=== PATIENT | male | born 1965 | race Hispanic/Latino ===

== ENCOUNTER 2017-04-29 10:48 | Emergency (ER) | payer MEDICARE, OTHER ==
--- OUTSIDE RECORDS SUMMARY | 2017-04-29 10:50 | XMS REPORT | Clinical Summary ---
Author Author [facility] Address Unknown Phone Unavailable Care Team Providers Care Entry Level Software Engineer Name Role Phone PCP Unavailable Allergies No Known Allergies Current Medications Prescription Sig. Disp. Refills Start End Date Status Date aspirin 81 MG EC Take 81 mg by mouth Active tabletIndications: ESRD daily. (end stage renal disease) ([facility]) pregabalin (LYRICA) 150 Take 75 mg by mouth 2 Active MG capsuleIndications: (two) times daily . ESRD (end stage renal disease) ([facility]) insulin glargine (LANTUS) Inject 50 Units Active 100 unit/mL subcutaneously nightly injectionIndications: Use as directed. ESRD (end stage renal disease) ([facility]) insulin glulisine (APIDRA Inject 30 Units Active SOLOSTAR) 100 unit/mL subcutaneously 3 (three) InPnIndications: ESRD times daily before meals (end stage renal disease) . ([facility]) sevelamer (RENAGEL) 800 Take 1,600 mg by mouth 3 Active MG tabletIndications: (three) times daily with ESRD (end stage renal meals. disease) ([facility]) atorvastatin (LIPITOR) 40 Take 80 mg by mouth Active MG tabletIndications: daily. ESRD (end stage renal disease) ([facility]) omega-3 fatty acids (FISH Take 1 capsule by mouth 2 Active OIL) 500 mg (two) times daily . CapIndications: ESRD (end stage renal disease) ([facility]) cholecalciferol, vitamin Take 10,000 Units by Active D3, 5,000 unit mouth once a week . TabIndications: ESRD (end stage renal disease) ([facility]) clopidogrel (PLAVIX) 75 Take 75 mg by mouth Active mg tabletIndications: daily. ESRD (end stage renal disease) ([facility]) albuterol HFA (VENTOLIN Inhale 1 puff by mouth Active HFA) 90 mcg/actuation via inhaler every 6 (six) inhaler hours as needed for Wheezing. allopurinol (ZYLOPRIM) Take 100 mg by mouth Active 100 MG tablet daily. cloNIDine HCl (CATAPRES) Take 0.2 mg by mouth as Active 0.3 MG tablet needed . carvedilol (COREG) 12.5 Take 12.5 mg by mouth 2 Active MG tablet (two) times daily. liraglutide 0.6 mg/0.1 mL Inject 1.8 mg Active (18 mg/3 mL) PnIj subcutaneously nightly. senna (SENOKOT) 8.6 mg Take 1 tablet by mouth as 10/23/19 Discontin tabletIndications: ESRD needed for Constipation. 17 ued (end stage renal disease) ([facility]) lactulose (CHRONULAC) 10 Take 10 g by mouth daily 10/23/19 Discontin gram/15 mL (15 mL) as needed 75 mg. 17 ued solutionIndications: ESRD (end stage renal disease) ([facility]) dexlansoprazole 60 mg Take 30 mg by mouth daily 01/19/20 Discontin capsule . 17 ued liraglutide 0.6 mg/0.1 mL Inject 0.3 mLs 01/19/20 Discontin (18 mg/3 mL) PnIj subcutaneously nightly . 17 ued Active Problems Patient Care Coordination Note Neurology Association- Rebeka Wan [phone] [facility] [phone] Urology- Lalo Watts [phone] Infectious Disease- Irlanda Gorman [phone] [facility] Gastroenterology Flash Billingsley MD [phone] Problem Noted Date Patient awaiting renal transplant 01/18/2017 Diabetic nephropathy associated with type 2 diabetes mellitus ([facility]) 2016 PVD (peripheral vascular disease) ([facility]) 01/18/2017 S/P coronary artery stent placement 01/18/2017 Essential hypertension with goal blood pressure less than 130/85 08/22/2015 ESRD (end stage renal disease) ([facility]) 08/22/2015 Preop examination 08/22/2015 CAD (coronary artery disease) 07/04/2015 CKD (chronic kidney disease) stage 5, GFR less than 15 ml/min ([facility]) 2014 Pre-transplant evaluation for chronic kidney disease 01/28/2015 Last Assessment & Plan: Risks/benefits/alternatives of transplant discussed indepth. All questions answered. From a surgical perspective there are no contraindications to transplant. DM type 2 causing CKD stage 5 ([facility]) 01/28/2015 Last Assessment & Plan: Continue tight blood glucose control. Essential hypertension 01/28/2015 Coronary artery disease involving [place] coronary artery of [place] heart without angina pectoris Last Assessment & Plan: Stented, no symptoms. Continue ASA/Plavix pre and postopr Obesity (BMI 30-39.9) 01/28/2015 Last Assessment & Plan: BMI acceptable for transplant, however encouraged ongoing weight loss. YOKASTA on CPAP 01/28/2015 Diabetic polyneuropathy associated with type 2 diabetes mellitus ([facility]) 01/28 Hyperlipidemia 01/28/2015 Encounters Date Type Specialty Care Team Description 04/21/2017 Telephone Transplant Jenise Schultz RN Waitlist Maintenance 03/14/2017 Orders Only Transplant Jenise Schultz RN Pre-transplant evaluation for chronic kidney disease (Primary Dx);Patient awaiting renal transplant 01/18/2017 Evaluation Transplant Vickie Anaya Pre-transplant evaluation MD Kerwin for chronic kidney disease (Primary Dx);ESRD (end stage renal disease) ([facility]);Patient awaiting renal transplant;Diabetic nephropathy associated with type 2 diabetes mellitus ([facility]);Essential hypertension with goal blood pressure less than 130/85;Coronary artery disease involving [place] coronary artery of [place] heart without angina pectoris;S/P coronary artery stent placement;YOKASTA on CPAP 01/18/2017 Orders Only Transplant Alcon Richard MD 01/17/2017 Telephone Transplant Maci Vang Appointment (Stress + 2D Echo + Updates) 12/21/2016 Hospital Gastroenterology Brittany Huitron MD Encounter 12/21/2016 Orders Only General Internal Medicine 12/21/2016 Procedure Pass Gastroenterology 12/21/2016 Surgery Gastroenterology Brittany Huitron MD COLONOSCOPY, POLYPECTOMY 12/20/2016 [facility] 12[facility]17[facility]2016 Hospital Pre-Admission Testing Encounter 12/10/2016 Documentation Transplant Taj Maci 12/06/2016 Documentation Transplant Taj Maci 12/06/2016 Telephone Transplant Sarah Vanginda Appointment (Updates) 12/03/2016 Telephone Transplant Jenise Schultz RN Waitlist Maintenance 10/26/2016 Hospital Gastroenterology Brittany Huitron MD Encounter 10/26/2016 Procedure Pass Gastroenterology 10/26/2016 Surgery Gastroenterology Brittany Huitron MD COLONOSCOPY 10/25/2016 Anesthesia Gastroenterology Woody De León Event MD 09/01/2016 Documentation Transplant Taj Maci 08/24/2016 Telephone Transplant Camargo, Meriam Appointment 08/23/2016 Telephone Transplant Sarah Vanginda Colonoscopy Scheduled 08/20/2016 Telephone Transplant Maci Vang Appointment ( Colonoscopy) 07/23/2016 Lab Requisition Lab Vickie Anaya MD 07/23/2016 Telephone Transplant Camargo, Meriam Appointment 07/23/2016 Documentation Transplant Camargo, Meriam 07/13/2016 Documentation Transplant Camargo, Meriam 05/12/2016 Abstract Transplant Jenise Schultz RN after 04/28/2016 Family History Medical History Relation Name Comments Diabetes Brother Diabetes Father Hypertension Father Leukemia Father Diabetes Mother Hypertension Mother Heart failure Sister Relation Name Status Comments Brother Alive Brother Father of leukemia (Age 76) Mother of CHF (Age 69) Sister Alive Sister Alive Sister Social History Tobacco Use Types Packs/Day Years Used Date Never Smoker Smokeless Tobacco: Never Used Alcohol Use Drinks/Week oz/Week Comments Yes Social Sex Assigned at Date Recorded Not on file Last Filed Vital Signs Vital Sign Reading Time Taken Blood Pressure 152/92 01/18/2017 12:19 PM DIAGNOSTIC SALES SPECIALIST Pulse 98 01/18/2017 12:19 PM DIAGNO[employer]IC SALES SPECIALIST Temperature 36.9 C (98.4 F) 01/18/2017 12:19 PM DIAGNOSTIC SALES SPECIALIST Respiratory Rate 16 01/18/2017 12:19 PM DIAGNOSTIC SALES SPECIALIST Oxygen Saturation 99% 01/18/2017 12:19 PM DIAGNOSTIC SALES SPECIALIST Inhaled Oxygen - - Concentration Weight 100.4 kg (221 lb 6.4 oz) 01/18/2017 12:19 PM DIAGNOSTIC SALES SPECIALIST Height 182.9 cm (6') 01/18/2017 12:19 PM DIAGNOSTIC SALES SPECIALIST Body Mass Index 30.03 01/18/2017 12:19 PM DIAGNOSTIC SALES SPECIALIST Plan of Treatment Health Maintenance Due Date Last Done Comments INFLUENZA VACCINE 12/05/2016 Implants Implanted Type Area Sueding And Buffing Machine Operator Device Expiration Model / Identifier Date Serial / Lot Laith Le [place] 09/12/2015 [id number] Implanted: Qty: 1 on 07/04/2015 [employer] 6250 / / [id number] Laith WILEY 09/03/2017 [id number] Implanted: Qty: 1 on 07/04/2015 [employer] 2250 / / [id number] Procedures Procedure Name Priority Date/Time Associated Diagnosis Comments COLONOSCOPY,POLYPECTOMY 12/21/2016 Screening for colon 8:00 AM CDT cancer COLONOSCOPY 10/26/2016 Colon cancer screening 11:00 AM CDT Special Needs (PATIENT IS ON DIALYSIS) after 04/28/2016 Results * Flow PRA Class II (04/05/2017 11:31 AM) Component Value Ref Range Flow Class II Percent 0 Positive Flow Class Report Comments Specimen Performing Laboratory Blood [facility] ONE [facility] [place], [place]: [id number] [place] [address] * Flow PRA Class I (04/05/2017 11:31 AM) Component Value Ref Range Flow Class I Percent 0 Positive Flow Class Report Comments Specimen Performing Laboratory Blood [facility] ONE [facility] [place], [place]: [id number] [place] [address] * POC-Glucose meter (12/21/2016 9:09 AM) Only the most recent of 3 results within the time period is included. Component Value Ref Range POC-Glucose Meter 147 (H)Comment: TESTED AT [address] 70 - 110 mg /dL [place] [id number] Specimen Performing Laboratory Blood [address] [address] * REPORT OF PROCEDURE - ENDOSCOPY URL (12/21/2016 8:32 AM) Only the most recent of 2 results within the time period is included. * Tissue Exam (12/21/2016 8:19 AM) Component Value Ref Range Case Report Surgical Pathology Report Case: [id number] Authorizing Provider: Brittany Huitron MD Collected: 12/21/2016 0819 Ordering Location: [facility] Endoscopy Received: 12/21/2016 1319 Services Pathologist: Srinivas Eng MD Specimens: A) - Polyp, Colon - Right/Ascending, cold forceps B) - Polyp, Colon - Cecum, cold forceps C) - Polyp, Colon - Transverse, polyps x 2--cold forceps DIAGNOSIS A. RIGHT/ASCENDING COLON POLYP, BIOPSY - TUBULAR ADENOMA - NO HIGH-GRADE DYSPLASIA AND NO MALIGNANCY IDENTIFIED B. CECUM POLYP, BIOPSY - TUBULAR ADENOMA - NO HIGH-GRADE DYSPLASIA AND NO MALIGNANCY IDENTIFIED C. TRANSVERSE COLON POLYP, BIOPSY - COLONIC MUCOSA, BENIGN LYMPHOID FOLLICLE Signing Pathologist Direct Phone Line: [phone] CPT Code(s) 20240 x 3 CLINICAL HISTORY Screening for colon cancer SPECIMEN SOURCE A. Right/ascending colon polyp. B. Cecum polyp. C. Transverse colon polyp GROSS DESCRIPTION Specimen A: Received in formalin labeled "polyp, colon right/ascending" are two fragments each measuring 0.3 cm in greatest dimension. Specimen is entirely submitted in A1. Specimen B: Received in formalin labeled "polyp, colon cecum" is a single fragment measuring 0.3 cm in greatest dimension. Specimen is entirely submitted in B1. Specimen C: Received in formalin labeled "polyp, colon transverse" are two fragments measuring 0.2 and 0.3 cm in greatest dimension. Specimen is entirely submitted in C1. DB/ew MICROSCOPIC DESCRIPTION A. Sections reveal pieces of colonic mucosa with a tubular adenoma with glands showing proliferation of adenomatous epithelium with nuclear stratification. The lamina propria has mildly increased acute and chronic inflammation. High-grade dysplasia and malignancy are not seen. B. Sections reveal a tubular adenoma with glands showing proliferation of adenomatous epithelium with nuclear stratification. The lamina propria has mildly increased acute and chronic inflammation. High-grade dysplasia and malignancy are not seen. C. Sections reveal pieces of benign colonic mucosa with a benign lymphoid follicle. The lamina propria has minimal chronic inflammation. Normal crypt architecture is seen with no evidence of granulomatous inflammation or acute colitis. Features of collagenous colitis, inflammatory bowel disease and lymphocytic colitis are not seen. Adenomatous change, dysplasia and malignancy are not seen. Specimen Performing Laboratory Tissue - Polyp, Colon - [facility] Right/Ascending; Tissue - [facility] Polyp, Colon - Cecum; [place] [address] Tissue - Polyp, Colon - Transverse * ECG 12 lead (12/21/2016 7:14 AM) Specimen Performing Laboratory GE MUSE Narrative Ventricular Rate 68 BPM Atrial Rate 68 BPM P-R Interval 146 ms QRS Duration 82 ms Q-T Interval 420 ms QTC Calculation(Bazett) 446 ms P Wil[place] 30 degrees R Wil[place] 29 degrees T [place] 29 degrees Normal sinus rhythm Poor R wave progression, cannot rule out old anterolateral DE Abnormal ECG When compared with ECG of 19-AUG-2015 09:32, poor R wave progression is now present Criteria for Inferior infarct are no longer Present Confirmed by MD LEYVA CHUNG-SHIN ([id number]) on 12/27/2016 12:29:12 PM Procedure Note Interface, External Ris In - 12/27/2016 12:29 PM CDT Ventricular Rate 68 BPM Atrial Rate 68 BPM P-R Interval 146 ms QRS Duration 82 ms Q-T Interval 420 ms QTC Calculation(Bazett) 446 ms P [place] 30 degrees R [place] 29 degrees T [place] 29 degrees Normal sinus rhythm Poor R wave progression, cannot rule out old anterolateral DE Abnormal ECG When compared with ECG of 19-AUG-2015 09:32, poor R wave progression is now present Criteria for Inferior infarct are no longer Present Confirmed by MD LEYVA CHUNG-SHIN ([id number]) on 12/27/2016 12:29:12 PM * POC-Hemoglobin meter (12/21/2016 7:01 AM) Component Value Ref Range POC-Hemoglobin Meter 11.4 (L)Comment: TESTED AT [address] 13.0 - 16.8 g/dL [place] [id number] Specimen Performing [place] [address] * POC-Potassium (12/21/2016 6:57 AM) Only the most recent of 2 results within the time period is included. Component Value Ref Range POC-Potassium 4.3Comment: TESTED AT [address] 3.6 - 5.5 meq/L [id number] Specimen Performing [place] [address] * Venous doppler legs bilateral (12/21/2016) * Arterial doppler legs bilateral (12/16/2016) * Ankle brachial index (12/16/2016) * Flow PRA Class I and II (07/19/2016 12:00 PM) Component Value Ref Range Date of Serum [id number] Serum# [id number] Flow PRA Class I and II See Scanned Report Specimen Performing Laboratory Blood [facility] IMMUNE EVALUATION LAB [facility] One [facility] [place], [place]:[address] [address] after 04/28/2016
--- OUTSIDE RECORDS SUMMARY | 2017-04-29 10:51 | XMS REPORT ---
Author Author [facility] Address Unknown Phone Unavailable Care Team Providers Care Manager Case Management Name Role Phone BRITTANY EID Unavailable Unavailable Problems This patient has no known problems. Allergies, Adverse Reactions, Alerts This patient has no known allergies or adverse reactions. Medications This patient has no known medications. Results Test Description Test Time Test Comments Text Results Atomic Results Result Comments TISSUE EXAM 2016-12-22 17:07:00 Surgical Pathology Report Case: [id number] Authorizing Provider: Brittany Eid MD Collected: 12/21/2016 0819 Ordering Location: [facility] Endoscopy Received: 2016 1319 Services Pathologist: Srinivas Eng MD Specimens: A) - Polyp, Colon - Right/Ascending, cold forceps B) - Polyp, Colon - Cecum, cold forceps C) - Polyp, Colon - Transverse, polyps x 2-- cold forceps A. RIGHT/ASCENDING COLON POLYP, BIOPSY - TUBULAR ADENOMA- NO HIGH-GRADE DYSPLASIA AND NO MALIGNANCY IDENTIFIEDB. CECUM POLYP, BIOPSY- TUBULAR ADENOMA- NO HIGH-GRADE DYSPLASIA AND NO MALIGNANCY IDENTIFIEDC. TRANSVERSE COLON POLYP, BIOPSY- COLONIC MUCOSA, BENIGN LYMPHOID FOLLICLE Signing Pathologist Direct Phone Line: [phone] signed by Srinivas Eng MD on 12/22/2016 at 5:07 [id number] x 3Screening for colon cancerA. Right/ascending colon polyp. B. Cecum polyp. C. Transverse colon polyp Specimen A: Received in formalin labeled "polyp, colon right/ascending" are two fragments each measuring 0.3 cm in greatest dimension. Specimen is entirely submitted in A1. Specimen B: Received in formalin labeled "polyp, colon cecum" is a single fragment measuring 0.3 cm in greatest dimension. Specimen is entirely submitted in B1.Specimen C: Received in formalin labeled "polyp, colon transverse" are two fragments measuring 0.2 and 0.3 cm in greatest dimension. Specimen is entirely submitted in C1. DB/ew A. Sections reveal pieces of colonic mucosa [...] change, dysplasia and malignancy are not seen. POCT-GLUCOSE METER 2016-12-21 09:11:00 POC-GLUCOSE METER (BEAKER) (test wxek=5547) 147 mg/dL 70-110 TESTED AT [place] [id number] 07:07:00* Test Item Value Reference Range Comments POC-POTASSIUM (BEAKER) (test ytxr=4358) 4.3 meq/L 3.6-5.5 TESTED AT [place] [id number] POCT-HEMOGLOBIN [id number] 07:03:00* Test Item Value Reference Range Comments POC-HEMOGLOBIN METER (BEAKER) (test post=8102) 11.4 g/dL 13.0-16.8 TESTED AT [place] [id number] POCT-GLUCOSE [id number] 07:03:00* Test Item Value Reference Range Comments POC-GLUCOSE METER (BEAKER) (test zjjw=5979) 169 mg/dL 70-110 [address]ED AT [address] [address] [id number] 11:28:00* Test Item Value Reference Range Comments POC-POTASSIUM (BEAKER) (test uogm=7029) 3.9 meq/L 3.6-5.[address] [address] POCT-GLUCOSE [id number] 11:18:00* Test Item Value Reference Range Comments POC-GLUCOSE METER (BEAKER) (test ivfo=8541) 108 mg/dL 70-110 TESTED AT [place] [id number] FLOW PRA CLASS I AND [id number] 13:22:00* Test Item Value Reference Range Comments DATE OF SERUM (JAYLIN) (test tcqq=7322) [id number] SERUM # (JAYLIN) (test acyi=8457) [id number] FLOW PRA CLASS I AND II (test yjmi=2967) See Scanned Report
== END 2017-04-29 11:30 | disposition short-term general hospital (02) ==
LOC: FSED 10:48
DX: S69.90XA Unspecified injury of unspecified wrist, hand and finger(s), initial encounter (principal)

== ENCOUNTER → 2019-09-20 | Day surgery (SDC) | payer MEDICARE, OTHER ==
[2019-09-14 11:40] LABS: BASOPHILS % 0.5 % (0.0-1.0); EOSINOPHILS # (AUTO) 0.1 (0.0-0.4); EOSINOPHILS % 2.5 % (0.0-6.0); HEMATOCRIT 39.7 % (38.2-49.6); HEMOGLOBIN 12.5 g/dL (14.0-18.0); LYMPHOCYTES # (AUTO) 0.9 (1.0-3.2); LYMPHOCYTES % 20.1 % (18.0-39.1); MEAN CORPUSCULAR HEMOGLOBIN 28.8 pg (28-32); MEAN CORPUSCULAR HGB CONC 31.5 g/dL (31-35); MEAN CORPUSCULAR VOLUME 91.5 fL (81-99); MONOCYTES # (AUTO) 0.4 (0.2-0.8); NEUTROPHILS % 67.7 % (38.7-80.0); PLATELET COUNT 140 x10e3/uL (140-360); RED BLOOD COUNT 4.34 x10e6/uL (4.3-5.7); RED CELL DISTRIBUTION WIDTH 13.9 % (11.7-14.4)
[2019-09-14 11:57] LABS: ANION GAP 16.1 mmol/L (8-16); CALCIUM 9.5 mg/dL (8.4-10.2); CREATININE, SERUM 7.51 mg/dL (0.72-1.25); POTASSIUM 5.1 mmol/L (3.5-5.1)
--- NOTE | 2019-09-14 12:12 | Diagnostic Imaging Report ---
X-ray chest PA and lateral Comparison: None History: Preop Findings: Status post median sternotomy and CABG. A few coronary artery stents are also visualized. Central airways unremarkable. Heart size normal. No pleural effusion. No pneumothorax. No focal lung disease. Right shoulder orthopedic hardware suggestive of prior surgery. Surgical magaly in the upper abdomen. Impression: No acute cardiopulmonary disease. Signed by: Danilo Bernard MD on 09/14/2019 12:08 PM
[~2019-09-20] MED LIST: ASPIRIN81 MG PO; ATORVASTATIN CA20 MG PO; BUPIVACAINE HCL 0.5% INJ 30 ML VIAL INJ ONE; CARVEDILOL12.5 MG PO; CEFAZOLIN SOD 1 GM/NS 50ML 100 ML IV ONE; EPINEPHRINE 1 MG/ML 30ML VIAL ONE; EPINEPHRINE HCL 1:1000 1ML 1 MG/ML AMP ONE; ETOMIDATE 2 MG/ML 10 ML INJ IV ONE; HUMALOG100 UNIT/1 SC; LANTUS 3ML100 UNITS/ SC; LIDOCAINE HCL 2% LOCAL INJ 5 ML SDV VIAL INJ ONE; LINZESS72 MCG PO; LYRICA150 MG PO; OMEGA 3 FISH O1 EACH PO; ONDANSETRON HCL INJ 2MG/ML 2ML 2 MG/ML VIAL ONE; PROPOFOL IV EMULSION 10 MG/ML 20 ML VIAL ONE; ROCURONIUM BROMIDE 10 MG/ML 5ML VIAL IV ONE; SENSIPAR30 MG PO; SEVOFLURANE INHAL SOLN 250 ML PEN BTL ONE; SODIUM CHLORIDE 0.9% 500ML 500 ML ONE; SUCCINYLCHOLINE CHLORIDE 20 MG/ML 10ML VIAL ONE; VICTOZA 2-0.6 MG/0.1 SC; VITAMIN D310 MCG PO
[2019-09-20 12:04] LABS: INR 0.85; PROTHROMBIN TIME 12.1 seconds (11.9-14.5)
[2019-09-20 12:05] LABS: PARTIAL THROMBOPLASTIN TIME 28.7 seconds (23.8-35.5)
[2019-09-20 15:05] VITALS: BP 135/65
--- NOTE | 2019-09-20 20:38 | Operative Report ---
DATE OF PROCEDURE: 09/20/2019 SURGEON: TANYA SUERO MD LOCATION: Place of surgery is [facility]. HISTORY: Mr. Erazo is a 54-year-old male whom I initially seeing in [facility] for recurrent pain of his right shoulder. Clinically, I was concerned about the recurrent right-sided rotator cuff tear. The patient underwent a rotator cuff repair of the same right shoulder several years ago. The patient had elected to forgo any further conservative treatment and proceed along with a diagnostic arthroscopy of the right shoulder. Risks and benefits of surgery have been outlined to him in the orthopedic clinic consisting of but not limited to the following: Infection, blood loss, nerve, vessel or tendon injury, DVT, ongoing pain, or stiffness. I also made the patient aware of my concerns regarding the chronicity of his tear as well as the tear and underlying retraction. He is aware that there is a possibility that the rotator cuff tendon itself may not be repairable and that if he has any other underlying functional loss of motion and pain he may referred to further additional surgery with worst case now being reverse shoulder arthroplasty. The patient was seen and identified in the preoperative holding area. The right shoulder was marked by myself and the patient agreed. The patient was then brought back to the operative suite, placed supine on the operative table. Time-out was taken for Mr. Rios Erazo for a diagnostic arthroscopy of his right shoulder. All were in agreement including nursing staff, anesthesia and myself. The patient had been given a regional block anesthesia in the preoperative holding area. The patient was then given successful general intubation anesthetic and then placed placed in the beach chair position. The right shoulder was then fully prepped and draped. The shoulder was inflated with about 30 mL of sterile saline and a 15-Bard Nelson blade was used to make the posterior portal. Blunt trocar was inserted. The patient was noted to have somewhat of a significant underlying villonodular synovitis throughout the anterior compartment. He also had the degenerative type 3 labral tear noted. A anterior working portal was made. The patient was also noted to have small rising loose bodies ranging from 2 to 3 mm in size. There was one loose body ranging about 5 to 6 mm in size. I went ahead and made two accessory anterior portal as well as accessory lateral portal to assist in removal of the rising loose bodies. The rising loose bodies were removed using an arthroscopic grasper and shaver. Upon which time to the anterior portal, the 4.0 shaver was then used to complete the synovectomy of the villonodular synovitis. This is done throughout the anterior and posterior portal. The type 3 degenerative labral tear was then taken down to a stable rim using arthroscopic shaver as well. Attention was then turned to the rotator cuff tendon. Once again, there was significant marked retraction of the previous sutures from the anchors were identified. The tendon was markedly retracted with marked adhesions. Examination of the subacromial space shows some small bone spur which occurred over the AC joint and acromion. Within the lateral and the posterior portal, a arthroscopic subacromial decompression was carried out removing the underlying spur using the 4.0 shaver and 4.5 brittanie. The patient had some degenerative changes in the AC joint. Arthroscopic distal clavicle resection was carried out using the 4.5 brittanie and shaver. Attention was then turned to the rotator cuff tear. Once again, due to the significant cynthia retraction adhesions I elected to proceed now with a mini incision over the AC joint to see if I can undermine the tear and try to bring it back down to bony surface. A small incision was made over the AC joint, anterolateral deltoid fibers were resected intact . Again, the rotator cuff tear was identified. It was markedly retracted almost near to the junction of the glenoid. I spent a good amount of time over 20 minutes undermining the soft tissue rotator cuff tendon and significant adhesions and I was able to bring it out laterally as best as possible and although only coming about 70% to 75% of humeral head, definitely improvement from before. Upon which time, two 5.5 helix Mitek anchors were deployed after the initial punch was completed. The four pairs of sutures were passed through the rotator cuff tendon and while maintaining shoulder abduction, the rotator tendon was reinserted back and was tied back down to bony insertion as best as possible. stable. There was significantly adequate coverage of the humeral head. Copious irrigation was carried out and deep layer closure was done using 1 Ethibond, 0 Vicryl, 2-0 Vicryl, Skin reapproximated with magaly and the patient was placed in the Xeroform compressive dressing and shoulder abduction mobilizer was applied and the patient was subsequently transferred to PACU in stable condition. PREOPERATIVE DIAGNOSES: 1. Recurrent right shoulder rotator cuff tear. 2. Right shoulder labral tear. 3. 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 4. Right shoulder degenerative joint disease. POSTOPERATIVE DIAGNOSES: 1. 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 2. Recurrent rotator cuff tear of the right shoulder massive and complete involving the supraspinatus, infraspinatus, subscapularis and teres. 3. Villonodular synovitis of the right shoulder. 4. Multiple rising loose bodies of the right shoulder. 5. Moderate to severe degenerative joint disease of the right shoulder. 6. Right shoulder impingement AC arthrosis. PROCEDURES: 1. Diagnostic arthroscopy of the right shoulder with a type 3 labral debridement. 2. Chondroplasty of the humeral head and the glenoid. 3. Arthroscopic synovectomy of villonodular synovitis of the right shoulder. 4. Removal of loose bodies of the right shoulder. 5. Arthroscopic subacromial decompression, i.e., acromioplasty. 6. Arthroscopic distal clavicle resection, i.e. Rsoalie procedure. 7. Mini open rotator cuff reconstruction and repair of the right rotator cuff tenons; supraspinatus, infraspinatus, subscapularis and teres minor. ANESTHESIA: General. ESTIMATED BLOOD LOSS: Less than 10 to 15 mL. SPECIMENS: Rising loose bodies. COMPLILCATIONS: None. CONDITION: Stable to PACU. The patient was seen in PACU. Dressing was clean and dry. Capillary refills are brisk. The patient did not have any family members present in the waiting room. I did attempt to contact I believe his or significant other, . Discharge wound care instructions are given. The patient was asked to follow up with Orthopedic Clinic in 12 to 14 days. He is discharged home with [facility] as well as [place]. Dressing wound care instructions were also relayed and conveyed to the patient. MD NATHANIEL AUSTIN/MINO /[id number]
== END | disposition home or self-care (01) ==
LOC: OR 06:32
PROVIDERS: ATTEND Orthopaedic Surgery
DX: S43.421A Sprain of right rotator cuff capsule, initial encounter (principal); S43.431A Superior glenoid labrum lesion of right shoulder, initial encounter; M19.011 Primary osteoarthritis, right shoulder; M75.01 Adhesive capsulitis of right shoulder; M24.011 Loose body in right shoulder; G56.01 Carpal tunnel syndrome, right upper limb; G56.21 Lesion of ulnar nerve, right upper limb; G47.33 Obstructive sleep apnea (adult) (pediatric); E11.22 Type 2 diabetes mellitus with diabetic chronic kidney disease; I12.0 Hypertensive chronic kidney disease with stage 5 chronic kidney disease or end stage renal disease; N18.6 End stage renal disease; E11.42 Type 2 diabetes mellitus with diabetic polyneuropathy; I51.9 Heart disease, unspecified; X58.XXXA Exposure to other specified factors, initial encounter; Z01.810 Encounter for preprocedural cardiovascular examination; Z01.812 Encounter for preprocedural laboratory examination; Z01.818 Encounter for other preprocedural examination; Z11.59 Encounter for screening for other viral diseases; Z79.84 Long term (current) use of oral hypoglycemic drugs; Z79.02 Long term (current) use of antithrombotics/antiplatelets; Z79.82 Long term (current) use of aspirin; Z79.4 Long term (current) use of insulin; Z99.2 Dependence on renal dialysis; Z95.1 Presence of aortocoronary bypass graft
CPT/HCPCS: 23412; 29824; 36415 ×2; 71046; 80048; 82948; 84132; 85025; 85610; 85730; 93005; C1713; J0171; J0330; J0690; J2001; J2405; J2704; J7040; U0002

== ENCOUNTER → 2019-12-14 | Outpatient (CLI) | payer MEDICARE, OTHER ==
[~2019-12-14] MED LIST changes: -BUPIVACAINE HCL 0.5% INJ 30 ML VIAL INJ ONE; -CEFAZOLIN SOD 1 GM/NS 50ML 100 ML IV ONE; -EPINEPHRINE 1 MG/ML 30ML VIAL ONE; -EPINEPHRINE HCL 1:1000 1ML 1 MG/ML AMP ONE; -ETOMIDATE 2 MG/ML 10 ML INJ IV ONE; -LIDOCAINE HCL 2% LOCAL INJ 5 ML SDV VIAL INJ ONE; -ONDANSETRON HCL INJ 2MG/ML 2ML 2 MG/ML VIAL ONE; -PROPOFOL IV EMULSION 10 MG/ML 20 ML VIAL ONE; -ROCURONIUM BROMIDE 10 MG/ML 5ML VIAL IV ONE; -SEVOFLURANE INHAL SOLN 250 ML PEN BTL ONE; -SODIUM CHLORIDE 0.9% 500ML 500 ML ONE; -SUCCINYLCHOLINE CHLORIDE 20 MG/ML 10ML VIAL ONE
== END ==
LOC: LAB 09:44
PROVIDERS: ATTEND Internal Medicine Gastroenterology
DX: Z01.812 Encounter for preprocedural laboratory examination (principal); Z11.59 Encounter for screening for other viral diseases
CPT/HCPCS: U0002